=== PATIENT | female | born 1940 ===

== ENCOUNTER 2017-09-01 10:41 | Day surgery (SDC) | payer MEDICARE, MEDICAID ==
[2017-09-01 11:19] VITALS: O2SAT 98
[2017-09-01 12:46] VITALS: BP 149/95; PULSE 63; RESP 16; TEMP 97
--- NOTE | 2017-09-01 12:52 | CP.SDSHP ---
Same Day Surgery H & P - History Proposed Procedure: US guided FNA of left thyroid nodule Pre-Op Diagnosis: Left thyroid nodule - Allergies Allergies: Allergies No Known Allergies Allergy (Verified 08/29/17 07:40) - Physical Exam Vital Signs: Vital Signs 09/01/17 09/01/17 10:54 12:28 Temperature 97.0 F L 97 F L Pulse Rate 67 63 Respiratory 20 16 Rate Blood Pressure 165/84 H 149/95 H O2 Sat by Pulse 98 98 Oximetry - Impression Impression: Pt with complex 1.7 cm left lower pole thyroid nodule. Plan US guided FNA. Pt. Evaluated Today:Candidate for Anesthesia & Procedure: No Short Stay Discharge - Short Stay Discharge Admitting Diagnosis/Reason for Visit: THYROID NODULE Disposition: HOME/ ROUTINE
--- NOTE | 2017-09-01 12:53 | PCM.SURG1 ---
Surgeon's Initial Post Op Note - Surgeon's Notes Surgeon: Deniz Lewis MD Superintendent Greens: NONE Type of Anesthesia: Local Pre-Operative Diagnosis: Left thyroid nodule Operative Findings: US showed a complex 1.7 cm thyroid nodule in the left lower pole thyroid nodule Post-Operative Diagnosis: Left thyroid nodule Operation Performed: US guided FNA Specimen/Specimens Removed: 25 g FNA x 4 Estimated Blood Loss: EBL {In ML}: 0 Blood Products Given: N/A Drains Used: No Drains Post-Op Condition: Good Date of Surgery/Procedure: 09/01/17 Time of Surgery/Procedure: 12:50
--- NOTE | 2017-09-07 13:54 | US ---
PROCEDURE: Date of Procedure: 09/01/2017 PROCEDURE: 1. Ultrasound guided FNA of left thyroid nodule, CPT 86859 2. Ultrasound guidance for FNA, 21805 Medications: 3cc 1% Lidocaine HISTORY: Enlarged left thyroid nodule. TECHNIQUE: Following informed consent and procedure time-out, a limited ultrasound patient's neck confirmed the presence of a 1.74 cm complex left thyroid nodule which is predominantly solid. After the patient's neck was prepped and draped in the usual sterile fashion, the skin was anesthetized with 1% lidocaine. Ultrasound-guided fine needle aspiration was then performed of the dominant left thyroid nodule. A total of 4 passes were made into the nodule with 25 gauge needle under ultrasound guidance. The FNA specimen was sent for routine pathology. Post biopsy ultrasound showed no hematoma. IMPRESSION: Ultrasound-guided FNA of the dominant left thyroid nodule.
== END 2017-09-01 13:05 | disposition home or self-care (01) ==
LOC: C.SPRAD 10:41
PROVIDERS: ATTEND Radiology Vascular & Interventional Radiology
DX: E04.1 Nontoxic single thyroid nodule (principal)